=== PATIENT | male | born 1970 | race Caucasian/White ===

== ENCOUNTER 2016-11-17 08:52 | Day surgery (SDC) | payer BC ==
[2016-11-16 11:06] VITALS: BMI 29.1
[~2016-11-17 08:52] MED LIST: LACTATED RINGERS 1,000 ML IV SCH
[2016-11-17 09:09] VITALS: RESP 16; TEMP 98.3
[2016-11-17] MEDS ORDERED: LIDOCAINE 1% 20 ML VIAL (10MG/ML) FOR IV START INTRADERMA ONE (09:20)
[2016-11-17] MEDS ORDERED: fentaNYL (PF) 50 MCG/ML 2 ML AMP ONE (09:24)
[2016-11-17] MEDS ORDERED: TRIAMCINOLONE ACETONIDE 40 MG/ML 1 ML VIAL ONE (09:24)
[2016-11-17] MEDS ORDERED: MIDAZOLAM 2 MG/2 ML VIAL ONE (09:24)
--- NOTE | 2016-11-17 09:48 | P.PCN ---
Date of Procedure: 11/17/16 Anesthesia: MAC Surgeon: Dave Mitchell Pathology: none sent Condition: stable Disposition: PACU Description of Procedure: PREOPERATIVE DIAGNOSIS: Lumbar spondylosis without myelopathy and facet arthropathy POSTOPERATIVE DIAGNOSIS: Lumbar spondylosis without myelopathy and facet arthropathy PROCEDURES: Left Radiofrequency thermocoagulation, L3, L4, and L5 medial branch , with fluoroscopic guidance. ANESTHESIA: 1% lidocaine plain; Conscious sedation with versed/fentanyl EBL: Minimal PROCEDURE INDICATION: The patient with low back pain secondary to lumbar arthropathy who had more than 50% relief of pain with previous diagnostic lumbar medial branch block with bupivacaine. Patient presents for left sided RFA today as right side already completed; no use of blood thinners. PROCEDURE DESCRIPTION / TECHNIQUE: The patient was seen and identified in the preoperative area. Risks, benefits, complications, and alternatives were discussed with the patient (including but not limited to incomplete pain relief , bleeding, infection, nerve damage, and allergies to medications), the patient agreed to proceed with the procedure and signed the consent after all questions were answered. Patient was taken to the OR and time out was completed to verify proper patient , position, laterality of pain, and allergies. Pt was placed in the prone position. IV was started. Vital signs remained stable throughout the procedure. A pillow was placed under the patients chest to decrease lordosis. The lumbosacral area was prepped and draped in the usual sterile fashion. Vital signs were closely monitored during the procedure. Conscious sedation was used during the procedure to decrease patients anxiety. Using AP and then oblique fluoroscopy, the eye of the Fazal dog corresponding to the connection between the superior and transverse articular processes of left L4, L5 and top of the sacrum were identified, marked, and localized with 1% lidocaine. Subsequently, a 18 gauge, 100-mm radiofrequency cannula with a 10-mm active tip was advanced guided by fluoroscopy to each of the eyes of the Fazal dog at left L3, L4, and L5 medial branches. Each site then underwent sensory testing at 50 Hz and 0 to 1 volt and motor testing at 2 Hz and 0 to 3 volt with local stimulation, but no radicular symptoms down the legs. Thereafter the left L3, L4, and L5 medial branch sites underwent radiofrequency thermocoagulation at 80 degrees Celsius for 90 seconds after injecting 0.5 ml of PF lidocaine 1%. After thermocoagulation, 1 ml of the block solution containing Kenalog 40 mg and 2 mL of preservative-free normal saline was injected at the left L3, L4, and L5 medial branch levels after negative aspiration of CSF and blood and with no paresthesias. Cannulas were retracted while injecting lidocaine 1% until the needles were removed. At the end of the procedure, the skin was cleansed and bandages were applied. COMPLICATIONS: No acute complications. DISPOSITION / PLANS: The patient was placed in a supine position and transferred to the recovery area in a stable condition for observation and was discharged from the recovery room after meeting discharge criteria. Home discharge instructions given to the patient by the staff. The patient was reexamined prior to discharge. The patient will schedule a follow up in the clinic in 2-4 weeks.
[2016-11-17 10:17] VITALS: BP 122/80; PULSE 63
[2016-11-17] MEDS ORDERED: IV FLUID CONTINUATION 1,000 ML IV ONE (10:24)
--- NOTE | 2016-11-17 11:10 | FL ---
EXAMINATION TYPE: FL guided pain mgmt statistic DATE OF EXAM: 11/17/2016 9:47 AM HISTORY: Flouroscopy time 7 seconds of fluoroscopy provided. IMPRESSION: 1. Fluoroscopy time.
== END 2016-11-17 10:58 | disposition home or self-care (01) ==
LOC: ORPAIN 08:52
PROVIDERS: ATTEND Anesthesiology
DX: M46.86 Other specified inflammatory spondylopathies, lumbar region (principal); M47.816 Spondylosis without myelopathy or radiculopathy, lumbar region; I10 Essential (primary) hypertension; Z79.899 Other long term (current) drug therapy
CPT/HCPCS: 64635; 64636 ×2; J2250; J3301; J3010

== ENCOUNTER 2017-03-09 10:49 | Emergency (ER) | payer BC ==
[2017-03-09 10:55] VITALS: TEMP 97.4
[2017-03-09] MEDS ORDERED: SODIUM CHLORIDE 0.9% 1,000 ML IV STA (11:04)
[2017-03-09] MEDS ORDERED: METOCLOPRAMIDE 5 MG/ML 2 ML VIAL IVP STA (11:05)
[2017-03-09] MEDS ORDERED: MECLIZINE 12.5 MG TAB PO STA (11:05)
--- NOTE | 2017-03-09 11:07 | ED ---
General Adult HPI - General Chief complaint: Dizziness Stated complaint: dizziness Time Seen by Provider: 03/09/17 10:58 Source: patient, family, RN notes reviewed Mode of arrival: ambulatory Limitations: no limitations - History of Present Illness Initial comments: Patient is a pleasant 46-year-old male presenting to the emergency department complaining of dizziness. Onset of symptoms was when he woke yesterday morning. Symptoms have been present since that time. Symptoms are positional. Symptoms worsen with upright position or head movements. Symptoms improved with lying down. Patient has some associated nausea. No syncope. No history of similar symptoms previously. No chest pain or dyspnea. Dizziness is described as a spinning type sensation. - Related Data Home Medications Medication Instructions Recorded Confirmed Lisinopril 40 mg PO DAILY 03/09/17 03/09/17 amLODIPine [Norvasc] 10 mg PO DAILY 03/09/17 03/09/17 Previous Rx's Medication Instructions Recorded Meclizine [Antivert] 25 mg PO TID PRN #12 tab 03/09/17 Allergies Allergy/AdvReac Type Severity Reaction Status Date / Time No Known Allergies Allergy Verified 03/09/17 11:31 Review of Systems ROS Statement: Those systems with pertinent positive or pertinent negative responses have been documented in the HPI. ROS Other: All systems not noted in ROS Statement are negative. Constitutional: Denies: fever Eyes: Denies: eye pain ENT: Denies: ear pain Respiratory: Denies: cough, dyspnea Cardiovascular: Denies: chest pain Endocrine: Denies: fatigue Gastrointestinal: Reports: nausea. Denies: abdominal pain Genitourinary: Denies: dysuria Musculoskeletal: Denies: back pain Skin: Denies: rash Neurological: Reports: vertigo. Denies: headache, weakness, confusion Past Medical History Past Medical History: Hypertension, Musculoskeletal Disorder History of Any Multi-Drug Resistant Organisms: None Reported Past Surgical History: Back Surgery, Orthopedic Surgery Additional Past Surgical History / Comment(s): (ARIADNE) ramila. eye surgery, left wrist pinned, [facility] Past Anesthesia/Blood Transfusion Reactions: No Reported Reaction Past Psychological History: No Psychological Hx Reported Smoking Status: Never smoker Past Alcohol Use History: Daily Past Drug Use History: None Reported - Past Family History Father Family Medical History: CVA/TIA, Hyperlipidemia Mother Family Medical History: No Reported History General Exam Limitations: no limitations General appearance: alert, in no apparent distress Head exam: Present: atraumatic, normocephalic Eye exam: Present: normal appearance, PERRL, EOMI. Absent: nystagmus ENT exam: Present: normal oropharynx Neck exam: Present: normal inspection Respiratory exam: Present: normal lung sounds bilaterally Cardiovascular Exam: Present: regular rate, normal rhythm GI/Abdominal exam: Present: soft. Absent: tenderness Extremities exam: Present: normal inspection. Absent: pedal edema, calf tenderness Neurological exam: Present: alert, CN II-XII intact. Absent: motor sensory deficit Expanded Speech: Present: fluid speech Cranial nerves: EOM's Intact: Normal, Facial Sensation: Normal Sensory exam: Upper Extremity Light Touch: Normal, Lower Extremity Light Touch: Normal Motor strength exam: RUE: 5, LUE: 5, RLE: 5, LLE: 5 Eye Response: (4) open spontaneously Motor Response: (6) obeys commands Verbal Response: (5) oriented Psychiatric exam: Present: normal affect, normal mood Skin exam: Absent: rash Course Vital Signs 03/09/17 03/09/17 10:52 12:54 Temperature 97.4 F L Pulse Rate 88 70 Respiratory 18 16 Rate Blood Pressure 136/68 118/60 O2 Sat by Pulse 97 98 Oximetry EKG Findings - EKG Comments: EKG Findings:: Normal sinus rhythm at 63. NC 158. QRS 88. QT 380. QTC 388. Normal axis. Normal QRS. Normal ST-T. Medical Decision Making - Medical Decision Making Patient reexamined and symptom-free. Patient able to get up and ambulate without any difficulty. Patient and family updated on results - Lab Data Result diagrams: 03/09/17 11:28 03/09/17 11:28 Lab Results 03/09/17 03/09/17 03/09/17 Range/Units 11:28 11:28 11:28 WBC 9.0 (3.8-10.6) k/uL RBC 4.88 (4.30-5.90) m/uL Hgb 14.3 (13.0-17.5) gm/dL Hct 42.8 (39.0-53.0) % MCV 87.6 (80.0-100.0) fL MCH 29.2 (25.0-35.0) pg MCHC 33.3 (31.0-37.0) g/dL RDW 13.3 (11.5-15.5) % Plt Count 268 (150-450) k/uL Neutrophils % 68 % Lymphocytes % 16 % Monocytes % 11 % Eosinophils % 2 % Basophils % 1 % Neutrophils # 6.1 (1.3-7.7) k/uL Lymphocytes # 1.4 (1.0-4.8) k/uL Monocytes # 1.0 (0-1.0) k/uL Eosinophils # 0.2 (0-0.7) k/uL Basophils # 0.1 (0-0.2) k/uL PT 11.2 (9.0-12.0) sec INR 1.1 (<1.1) Sodium 138 (137-145) mmol/L Potassium 5.4 H (3.5-5.1) mmol/L Chloride 105 (98-107) mmol/L Carbon Dioxide 22 (22-30) mmol/L Anion Gap 11 mmol/L BUN 18 (9-20) mg/dL Creatinine 0.75 (0.66-1.25) mg/dL Est GFR (MDRD) Af Amer >60 (>60 ml/min/1.73 sqM) Est GFR (MDRD) Non-Af >60 (>60 ml/min/1.73 sqM) Glucose 108 H (74-99) mg/dL Calcium 9.9 (8.4-10.2) mg/dL Total Bilirubin 1.3 (0.2-1.3) mg/dL AST 36 (17-59) U/L ALT 34 (21-72) U/L Alkaline Phosphatase 72 (38-126) U/L Troponin I (0.000-0.034) ng/mL Total Protein 8.1 (6.3-8.2) g/dL Albumin 4.7 (3.5-5.0) g/dL 03/09/17 Range/Units 11:28 WBC (3.8-10.6) k/uL RBC (4.30-5.90) m/uL Hgb (13.0-17.5) gm/dL Hct (39.0-53.0) % MCV (80.0-100.0) fL MCH (25.0-35.0) pg MCHC (31.0-37.0) g/dL RDW (11.5-15.5) % Plt Count (150-450) k/uL Neutrophils % % Lymphocytes % % Monocytes % % Eosinophils % % Basophils % % Neutrophils # (1.3-7.7) k/uL Lymphocytes # (1.0-4.8) k/uL Monocytes # (0-1.0) k/uL Eosinophils # (0-0.7) k/uL Basophils # (0-0.2) k/uL PT (9.0-12.0) sec INR (<1.1) Sodium (137-145) mmol/L Potassium (3.5-5.1) mmol/L Chloride (98-107) mmol/L Carbon Dioxide (22-30) mmol/L Anion Gap mmol/L BUN (9-20) mg/dL Creatinine (0.66-1.25) mg/dL Est GFR (MDRD) Af Amer (>60 ml/min/1.73 sqM) Est GFR (MDRD) Non-Af (>60 ml/min/1.73 sqM) Glucose (74-99) mg/dL Calcium (8.4-10.2) mg/dL Total Bilirubin (0.2-1.3) mg/dL AST (17-59) U/L ALT (21-72) U/L Alkaline Phosphatase (38-126) U/L Troponin I <0.012 (0.000-0.034) ng/mL Total Protein (6.3-8.2) g/dL Albumin (3.5-5.0) g/dL - Radiology Data Radiology results: report reviewed (Computed tomography scan of the brain shows no acute process) Disposition Clinical Impression: Vertigo Disposition: HOME SELF-CARE Condition: Stable Instructions: Dizziness (ED), Vertigo (ED) Additional Instructions: Please follow-up with primary care physician in the next couple of days for recheck. Return for confusion, weakness, increased dizziness, off balance, worsening symptoms or other concerns. Prescriptions: Meclizine [Antivert] 25 mg PO TID PRN #12 tab PRN Reason: dizziness Referrals: Quentin Moore MD [Primary Care Provider] - 1-2 days
[2017-03-09 11:52] LABS: ALT 34 U/L (21-72); AST 36 U/L (17-59); Alkaline Phosphatase 72 U/L (38-126); Anion Gap 11 mmol/L; Blood Urea Nitrogen 18 mg/dL (9-20); Calcium 9.9 mg/dL (8.4-10.2); Carbon Dioxide 22 mmol/L (22-30); Chloride 105 mmol/L (98-107); Glucose 108 mg/dL (74-99); Non-African American GFR(MDRD) >60 (>60 ml/min/1.73 sqM); Potassium 5.4 mmol/L (3.5-5.1); Sodium 138 mmol/L (137-145); Total Bilirubin 1.3 mg/dL (0.2-1.3); Total Protein 8.1 g/dL (6.3-8.2)
[2017-03-09 11:58] LABS: INR 1.1 (<1.1); Prothrombin Time 11.2 sec (9.0-12.0)
--- NOTE | 2017-03-09 11:58 | CT ---
EXAMINATION TYPE: CT brain wo con DATE OF EXAM: 03/09/2017 11:52 AM COMPARISON: NONE HISTORY: Vertigo, chest pressure CT DLP: [address] of the brain was performed. The ventricles, basal cisterns and sulci overlying the cerebral convexities demonstrate a normal appe arance. There is no evidence for intracranial hemorrhage or sulcal effacement. No mass effects are seen. Osseous calvarium is intact. If symptoms persist consider MRI as clinically warranted. IMPRESSION: 1. No acute intracranial process is seen at this time.
[2017-03-09 12:01] LABS: Basophils # (A) 0.1 k/uL (0-0.2); Basophils % (A) 1 %; CH 29.5; CHCM 33.9; Eosinophils # (A) 0.2 k/uL (0-0.7); Eosinophils % (A) 2 %; HCT 42.8 % (39.0-53.0); HGB 14.3 gm/dL (13.0-17.5); Luc # (Auto) 0.16; Luc % (Auto) 2; Lymphocytes # (A) 1.4 k/uL (1.0-4.8); Lymphocytes % (A) 16 %; MCH 29.2 pg (25.0-35.0); MCHC 33.3 g/dL (31.0-37.0); MCV 87.6 fL (80.0-100.0); Mean Platelet Volume 8.5; Monocytes % (A) 11 %; Neutrophils # (A) 6.1 k/uL (1.3-7.7); Neutrophils % (A) 68 %; RBC 4.88 m/uL (4.30-5.90); RDW 13.3 % (11.5-15.5); WBC (Perox) 9.36
[2017-03-09 12:56] VITALS: BP 118/60; PULSE 70; RESP 16
== END 2017-03-09 13:21 | disposition home or self-care (01) ==
LOC: EC 10:49
DX: R42 Dizziness and giddiness (principal); R11.0 Nausea; I10 Essential (primary) hypertension; Z79.899 Other long term (current) drug therapy
CPT/HCPCS: 36415; 93005; 80053; 84484; 85025; 85610; 70450; 99284; 96374; 96361 ×2; J2765

== ENCOUNTER 2017-07-09 23:11 | Inpatient (IN) | payer BC ==
--- NOTE | 2017-07-09 23:42 | ED ---
General Adult HPI - General Source: patient, EMS, RN notes reviewed, old records reviewed Mode of arrival: EMS <Jaime Phillips - Last Filed: 07/09/17 23:42> <Lavelle Yun - Last Filed: 07/10/17 04:55> - General Chief complaint: Psychiatric Symptoms Stated complaint: ETOH Time Seen by Provider: 07/09/17 23:37 - History of Present Illness Initial comments: This is a 47-year-old male here for evaluation. Patient is a DO NOT RESUSCITATE. Bowel car complaining of suicide. Patient was with the right foot pain after jumping off a jump onto his right foot. Patient to any other pain or injury. Patient states he is suicidal feels like jumping into the water (Jaime Phillips) - Related Data Home Medications Medication Instructions Recorded Confirmed Lisinopril 40 mg PO DAILY 03/09/17 03/09/17 amLODIPine [Norvasc] 10 mg PO DAILY 03/09/17 03/09/17 Previous Rx's Medication Instructions Recorded Meclizine [Antivert] 25 mg PO TID PRN #12 tab 03/09/17 Allergies Allergy/AdvReac Type Severity Reaction Status Date / Time No Known Allergies Allergy Verified 03/09/17 11:31 Review of Systems ROS Other: All systems not noted in ROS Statement are negative. <Jaime Phillips - Last Filed: 07/09/17 23:42> ROS Other: All systems not noted in ROS Statement are negative. <Lavelle Yun - Last Filed: 07/10/17 04:55> ROS Statement: Those systems with pertinent positive or pertinent negative responses have been documented in the HPI. Past Medical History Past Medical History: Hypertension, Musculoskeletal Disorder History of Any Multi-Drug Resistant Organisms: None Reported Past Surgical History: Back Surgery, Orthopedic Surgery Additional Past Surgical History / Comment(s): (ARIADNE) ramila. eye surgery, left wrist pinned, [facility] Past Anesthesia/Blood Transfusion Reactions: No Reported Reaction Past Psychological History: No Psychological Hx Reported Smoking Status: Never smoker Past Alcohol Use History: Daily Past Drug Use History: None Reported - Past Family History Father Family Medical History: CVA/TIA, Hyperlipidemia Mother Family Medical History: No Reported History <Jaime Phillips - Last Filed: 07/09/17 23:42> General Exam General appearance: alert, in no apparent distress Head exam: Present: atraumatic, normocephalic, normal inspection Eye exam: Present: normal appearance, PERRL, EOMI. Absent: scleral icterus, conjunctival injection, periorbital swelling ENT exam: Present: normal exam, mucous membranes moist Neck exam: Present: normal inspection. Absent: tenderness, meningismus, lymphadenopathy Respiratory exam: Present: normal lung sounds bilaterally. Absent: respiratory distress, wheezes, rales, rhonchi, stridor Cardiovascular Exam: Present: regular rate, normal rhythm, normal heart sounds. Absent: systolic murmur, diastolic murmur, rubs, gallop, clicks GI/Abdominal exam: Present: soft, normal bowel sounds. Absent: distended, tenderness, guarding, rebound, rigid Extremities exam: Present: normal inspection, full ROM, normal capillary refill. Absent: tenderness, pedal edema, joint swelling, calf tenderness Back exam: Present: normal inspection Neurological exam: Present: alert, oriented X3, CN II-XII intact Psychiatric exam: Present: normal affect, normal mood Skin exam: Present: warm, dry, intact, normal color. Absent: rash <Jaime Phillips - Last Filed: 07/09/17 23:42> Course <Jaime Phillips - Last Filed: 07/09/17 23:42> <Lavelle Yun - Last Filed: 07/10/17 04:55> Vital Signs 07/09/17 23:21 Temperature 98.2 F Pulse Rate 86 Respiratory 18 Rate Blood Pressure 164/87 O2 Sat by Pulse 95 Oximetry - Reevaluation(s) Reevaluation #1: 07/10/17 04:05 Patient was reevaluated. He is clinically sober. He is still complaining of suicidal ideation. He will be evaluated by EPS. (Lavelle Yun) Medical Decision Making <Jaime Phillips - Last Filed: 07/09/17 23:42> <Lavelle Yun - Last Filed: 07/10/17 04:55> - Medical Decision Making 47-year-old male presenting with alcohol intoxication and suicidal ideation. After the patient is medically cleared, and clinically sober, he is evaluated by EPS. The patient does meet for inpatient psychiatric evaluation and treatment. He will be admitted for further care. Patient is agreeable with this plan. (Lavelle Yun) - Lab Data Lab Results 07/10/17 Range/Units 00:30 Urine Opiates Screen Not Detected (NotDetected) Ur Oxycodone Screen Not Detected (NotDetected) Urine Methadone Screen Not Detected (NotDetected) Ur Propoxyphene Screen Not Detected (NotDetected) Ur Barbiturates Screen Not Detected (NotDetected) U Tricyclic Antidepress Not Detected (NotDetected) Ur Phencyclidine Scrn Not Detected (NotDetected) Ur Amphetamines Screen Not Detected (NotDetected) U Methamphetamines Scrn Not Detected (NotDetected) U Benzodiazepines Scrn Not Detected (NotDetected) Urine Cocaine Screen Not Detected (NotDetected) U Marijuana (THC) Screen Not Detected (NotDetected) Disposition <Jaime Phillips - Last Filed: 07/09/17 23:42> Decision to Admit Reason: Admit from EC Decision Date: 07/10/17 Decision Time: 04:55 <Lavelle Yun - Last Filed: 07/10/17 04:55> Clinical Impression: Depression, Suicidal ideation Disposition: ADMITTED IP TO THIS [facility] Condition: Stable Referrals: Quentin Moore MD [Primary Care Provider] - 1-2 days
--- NOTE | 2017-07-10 00:24 | XR ---
EXAM: XR Right Foot Complete, 3 or More Views. CLINICAL HISTORY: Reason: Pain TECHNIQUE: Frontal, lateral and oblique views of the right foot. COMPARISON: No relevant prior studies available. FINDINGS: Bones: Chronic, healed fracture of the second metatarsal, without significant residual deformity. Joints: Unremarkable. No dislocation. Soft tissues: Unremarkable. No radiopaque foreign body. IMPRESSION: No acute findings in the right foot. Chronic, healed fracture of the second metatarsal.
--- NOTE | 2017-07-10 00:25 | XR ---
EXAM: XR Right Ankle Complete, 3 or More Views. CLINICAL HISTORY: Reason: Pain TECHNIQUE: Frontal, lateral and oblique views of the right ankle. COMPARISON: No relevant prior studies available. FINDINGS: Bones: Unremarkable. No acute fracture. Joints: Unremarkable. No dislocation. Soft tissues: Unremarkable. IMPRESSION: Normal right ankle.
[2017-07-10 05:23] VITALS: RESP 16
[2017-07-10] MEDS ORDERED: MAGNESIUM HYDROXIDE 2,400 MG/10 ML CUP PO PRN (05:36)
[2017-07-10] MEDS ORDERED: ACETAMINOPHEN TAB 325 MG TAB PO PRN (05:36)
[2017-07-10] MEDS ORDERED: MAG HYDROX/AL HYDROX/SIMETH 30 ML CUP PO PRN (05:36)
[2017-07-10] MEDS ORDERED: LORazepam 1 MG TAB PO PRN (05:36)
[2017-07-10 06:19] VITALS: TEMP 100.4
[2017-07-10] MEDS ORDERED: NICOTINE 14MG/24HR PATCH TRANSDERM SCH (09:00)
[2017-07-10 09:16] LABS: Basophils % (A) 0 %; CH 28.6; CHCM 33.1; Eosinophils # (A) 0.2 k/uL (0-0.7); Eosinophils % (A) 2 %; HCT 43.8 % (39.0-53.0); HDW 2.27; HGB 14.9 gm/dL (13.0-17.5); Luc # (Auto) 0.22; Luc % (Auto) 2; Lymphocytes # (A) 2.1 k/uL (1.0-4.8); Lymphocytes % (A) 19 %; MCH 29.4 pg (25.0-35.0); MCV 86.7 fL (80.0-100.0); Mean Platelet Volume 7.1; Monocytes # (A) 0.8 k/uL (0-1.0); Monocytes % (A) 7 %; Neutrophils # (A) 8.1 k/uL (1.3-7.7); Neutrophils % (A) 71 %; RBC 5.05 m/uL (4.30-5.90); RDW 14.4 % (11.5-15.5); WBC 11.4 k/uL (3.8-10.6); WBC (Perox) 11.54
[2017-07-10 09:41] LABS: ALT 25 U/L (21-72); AST 23 U/L (17-59); Alkaline Phosphatase 128 U/L (38-126); Anion Gap 10 mmol/L; Blood Urea Nitrogen 8 mg/dL (9-20); Calcium 9.4 mg/dL (8.4-10.2); Carbon Dioxide 24 mmol/L (22-30); Chloride 108 mmol/L (98-107); Glucose 86 mg/dL (74-99); Non-African American GFR(MDRD) >60 (>60 ml/min/1.73 sqM); Potassium 4.4 mmol/L (3.5-5.1); Sodium 142 mmol/L (137-145); Total Bilirubin 0.4 mg/dL (0.2-1.3)
[2017-07-10 12:23] VITALS: BP 130/88; PULSE 92
--- NOTE | 2017-07-10 16:48 | P.CONS ---
History of Present Illness - Reason for Consult Consult date: 07/10/17 medical history and physical - Chief Complaint Suicidal ideation - History of Present Illness His a 47-year-old gentleman with multiple episodes of admission to the psych unit due to suicidal ideation comes in to the hospital after attending a suicide by jumping and there are patient states that he was drinking alcohol just felt hopeless about his life and hence attempted suicide. What is interesting is the patient has had the multiple admissions the hospital however try to use his brother's name to be admitted to the hospital for insurance purposes Today patient states that he continues to be hopeless no active plans for any suicidal ideation. Patient denies any recent IV drug use. Denies using any other illicit substances except for alcohol continues to smoke tobacco Denies having any headaches changes in vision nausea vomiting chest pain abdominal pain urinary urgency or frequency patient's only complaint is that he has some soreness of the bottom of the heel however is able to bear weight Review of systems 14 point review of systems was done nonpertinent was mentionable Gen. appearance alert oriented 3 does not appear to be in distress neck is supple no JVD Pupils are equal round reactive light and cognition Lungs diminished breath sounds however air movement is appreciated no rhonchi wheezing or crackles Heart regular rate and rhythm no murmurs appreciable Abdomen is soft nontender no organomegaly Lower no edema is noted Neuro no focal motor or sensory deficits noted Patient is able to bear weight on his ankles no significant edema on palpation of his right or left ankle Assessment and plan #1 major depression with suicidal ideation #2 polysubstance overuse #3 essential hypertension #4 ongoing tobacco dependence Plan Patient does not need any further workup for his ankles soft voiding to [place] ankle rules patient is able to bear weight, the pretest probability of obtaining a ankle x-rays very low We'll encourage the patient to slowly increase activity Follow-up thank you for the consultation we'll further workup is needed we'll sign off on the case at this time. Past Medical History Past Medical History: Hypertension, Musculoskeletal Disorder History of Any Multi-Drug Resistant Organisms: None Reported Past Surgical History: Back Surgery, Orthopedic Surgery Additional Past Surgical History / Comment(s): (ARIADNE) bilat. eye surgery, left wrist pinned, [facility] Past Anesthesia/Blood Transfusion Reactions: No Reported Reaction Smoking Status: Never smoker - Past Family History Father Family Medical History: CVA/TIA, Hyperlipidemia Mother Family Medical History: No Reported History Medications and Allergies Home Medications Medication Instructions Recorded Confirmed Type Lisinopril 40 mg PO DAILY 03/09/17 07/10/17 History Meclizine [Antivert] 25 mg PO TID PRN #12 tab 03/09/17 07/10/17 Rx amLODIPine [Norvasc] 10 mg PO DAILY 03/09/17 07/10/17 History Allergies Allergy/AdvReac Type Severity Reaction Status Date / Time No Known Allergies Allergy Verified 07/10/17 05:44 Physical Exam Vitals: Vital Signs Temp Pulse Pulse Resp BP BP Pulse Ox 07/10/17 12:22 92 16 130/88 07/10/17 06:17 100.4 F H 123 H 16 126/69 07/10/17 05:48 97 07/10/17 05:19 98.0 F 110 H 16 130/75 79 L 07/09/17 23:21 98.2 F 86 18 164/87 95 Intake and Output 07/10/17 07/10/17 07/10/17 06:59 14:59 22:59 Other: Weight 72.575 kg Results CBC & Chem 7: 07/10/17 08:51 07/10/17 08:51 Labs: Abnormal Lab Results - Last 24 Hours (Table) 07/10/17 07/10/17 Range/Units 08:51 08:51 WBC 11.4 H (3.8-10.6) k/uL Neutrophils # 8.1 H (1.3-7.7) k/uL Chloride 108 H (98-107) mmol/L BUN 8 L (9-20) mg/dL Alkaline Phosphatase 128 H (38-126) U/L
== END 2017-07-10 17:22 | disposition home or self-care (01) | DRG 881 ==
LOC: EC 23:11 → 3MHU 07-10 05:33
PROVIDERS: ADMIT Psychiatry & Neurology Psychiatry; ATTEND Psychiatry & Neurology Psychiatry
DX: F32.9 Major depressive disorder, single episode, unspecified (principal); R45.851 Suicidal ideations; I10 Essential (primary) hypertension; Z66 Do not resuscitate; Z79.899 Other long term (current) drug therapy; F10.129 Alcohol abuse with intoxication, unspecified; F17.200 Nicotine dependence, unspecified, uncomplicated
CPT/HCPCS: 80053; 80306; 82075; 84443; 85025; 99285

== ENCOUNTER → 2018-06-08 | Outpatient (CLI) | payer BC, OTHER ==
[2018-06-08 17:04] LABS: Immunoglobulin E <1.00 IU/mL (0.00-114.00)
[2018-06-08 18:11] LABS: Alternaria alternata IgE <0.10 kU/L; Birch IgE <0.10 kU/L; Cat Epith & Dander IgE <0.10 kU/L; Clam IgE <0.10 kU/L; Cockroach IgE <0.10 kU/L; Codfish IgE <0.10 kU/L; Dermato. farinae IgE 0.21 kU/L; Dog Dander IgE <0.10 kU/L; Egg White IgE <0.10 kU/L; Elm IgE <0.10 kU/L; Immunoglobulin E <1.00 IU/mL (0.00-114.00); Maple (Box Elder) IgE <0.10 kU/L; Oak IgE <0.10 kU/L; Peanut IgE <0.10 kU/L; Ragweed,Common IgE <0.10 kU/L; Red Top (Bentgrass) IgE <0.10 kU/L; Scallop IgE <0.10 kU/L; Shrimp IgE <0.10 kU/L; Soybean IgE <0.10 kU/L; Walnut IgE (Food) <0.10 kU/L
[2018-06-09 12:26] LABS: IgG Subclass 3 15.1 mg/dL (11.0-85.0); IgG Subclass 4 <5.2 mg/dL (3.0-175.0)
== END | disposition home or self-care (01) ==
LOC: LABWHC1 10:06
PROVIDERS: ATTEND Internal Medicine Critical Care Medicine
DX: J20.9 Acute bronchitis, unspecified (principal); J30.2 Other seasonal allergic rhinitis
CPT/HCPCS: 36415; 82784; 82785; 82787; 86003

== ENCOUNTER → 2018-12-08 | Outpatient (CLI) | payer BC ==
--- NOTE | 2018-12-09 09:23 | CT ---
EXAMINATION TYPE: CT chest wo con DATE OF EXAM: 12/08/2018 COMPARISON: Chest x-ray December 04, 2018 HISTORY: Acute bronchitis per order. CT DLP: 439.2 mGycm. Automated Exposure Control for Dose Reduction was Utilized. TECHNIQUE: CT scan of the thorax is performed without IV contrast. FINDINGS: LUNGS: There is minimal patchy bibasilar linear scarring and/or atelectasis. There is no suspicious f ocal consolidation or groundglass opacity seen. There is no pleural effusion or pneumothorax seen christine aterally. No concerning parenchymal nodules or masses are present. The tracheobronchial tree is paten t. MEDIASTINUM: Lack of IV contrast is noted to limit evaluation for mediastinal and especially hilar ad enopathy. There are no definitive greater than 1 cm hilar or mediastinal lymph nodes. No cardiomega ly or pericardial effusion is seen. Mild coronary artery calcification is seen which is noted marker for coronary artery disease. OTHER: Mild to moderate multilevel anterior and lateral spurring in the mid to lower thoracic spine i s present. IMPRESSION: No suspicious acute pulmonary process.
== END | disposition home or self-care (01) ==
LOC: RADCTMAIN 17:21
PROVIDERS: ATTEND Internal Medicine Critical Care Medicine
DX: J20.9 Acute bronchitis, unspecified (principal)
CPT/HCPCS: 71250

== ENCOUNTER → 2019-04-24 | Outpatient (CLI) | payer BC ==
[2019-04-24 07:45] LABS: Basophils % (A) 0 %; Eosinophils % (A) 0 %; HCT 42.1 % (39.0-53.0); HGB 13.8 gm/dL (13.0-17.5); Lymphocytes # (A) 1.7 k/uL (1.0-4.8); Lymphocytes % (A) 10 %; MCHC 32.8 g/dL (31.0-37.0); MCV 85.3 fL (80.0-100.0); Mean Platelet Volume 7.3; Monocytes # (A) 0.8 k/uL (0-1.0); Monocytes % (A) 4 %; Neutrophils # (A) 15.1 k/uL (1.3-7.7); Neutrophils % (A) 85 %; Platelet Count 531 k/uL (150-450); RBC 4.94 m/uL (4.30-5.90); RDW 13.3 % (11.5-15.5); WBC 17.8 k/uL (3.8-10.6)
[2019-04-24 10:53] LABS: Erythrocyte Sedimentation Rate 20 mm/hr (0-15)
[2019-04-24 10:57] LABS: Vitamin D 25 Hydroxy 17.1 ng/mL (30.0-100.0)
[2019-04-24 11:52] LABS: C Reactive Protein <0.4 mg/dL (0.0-0.8); Cholesterol 220 mg/dL (0-200); Creatine Kinase 104 U/L (35-257); LDL Cholesterol,Calculated 145.6 mg/dL (0.0-131.0)
[2019-04-24 11:53] LABS: ALT 16 U/L (10-49); AST 17 U/L (14-35); African American GFR (CKD) 120.7 (60.0-200.0); Albumin/Globulin Ratio 1.91 (1.60-3.17); Alkaline Phosphatase 74 U/L (41-126); Anti-DNA, DS unit <1.0 IU/mL; BUN/Creat Ratio 23.75 Ratio (12.00-20.00); Calcium 9.5 mg/dL (8.7-10.3); Carbon Dioxide 24.5 mmol/L (21.6-31.8); Chloride 105 mmol/L (96-109); DNA Double-Stranded NEGATIVE (NEGATIVE); Globulin 2.3 g/dL (1.6-3.3); Glucose 111 mg/dL (70-110); Potassium 4.9 mmol/L (3.5-5.5); Sodium 139 mmol/L (135-145); Total Bilirubin 0.3 mg/dL (0.3-1.2); Total Protein 6.7 g/dL (6.2-8.2)
[2019-04-24 12:54] LABS: Hepatitis C IgG Antibody Non-Reactive (Non-Reactive)
== END | disposition home or self-care (01) ==
LOC: LABWHC1 06:47
PROVIDERS: ATTEND Internal Medicine
DX: N40.0 Benign prostatic hyperplasia without lower urinary tract symptoms (principal); J44.9 Chronic obstructive pulmonary disease, unspecified; E87.8 Other disorders of electrolyte and fluid balance, not elsewhere classified; E78.5 Hyperlipidemia, unspecified; E55.9 Vitamin D deficiency, unspecified; M35.9 Systemic involvement of connective tissue, unspecified; R05 Cough
CPT/HCPCS: 36415; 80053; 80061; 82306; 82550; 84153; 84443; 85025; 85652; 86038; 86140; 86225; 86803

== ENCOUNTER → 2019-12-28 | Outpatient (CLI) | payer BC ==
[2019-12-28 10:07] LABS: Basophils # (A) 0.1 k/uL (0-0.2); Basophils % (A) 1 %; Eosinophils # (A) 0.2 k/uL (0-0.7); Eosinophils % (A) 2 %; HCT 42.3 % (39.0-53.0); Lymphocytes # (A) 2.3 k/uL (1.0-4.8); Lymphocytes % (A) 27 %; MCH 28.5 pg (25.0-35.0); MCHC 33.1 g/dL (31.0-37.0); Mean Platelet Volume 7.5; Monocytes # (A) 0.5 k/uL (0-1.0); Monocytes % (A) 6 %; Neutrophils # (A) 5.3 k/uL (1.3-7.7); Neutrophils % (A) 62 %; Platelet Count 334 k/uL (150-450); RBC 4.93 m/uL (4.30-5.90); RDW 13.3 % (11.5-15.5); WBC 8.5 k/uL (3.8-10.6)
[2019-12-28 16:40] LABS: African American GFR (CKD) 114.2 (60.0-200.0); Anion Gap 6.5 mmol/L (4.00-12.00); BUN/Creat Ratio 14.44 Ratio (12.00-20.00); Calcium 9.6 mg/dL (8.7-10.3); Carbon Dioxide 26.5 mmol/L (21.6-31.8); Chol/HDL Ratio 3.58; LDL Cholesterol,Calculated 93.2 mg/dL (0.0-131.0); Non-African American GFR(CKD) 98.5 (60.0-200.0); Potassium 4.6 mmol/L (3.5-5.5); VLDL Calculation 17.8 mg/dL (5.00-40.00)
== END | disposition home or self-care (01) ==
LOC: LABWHC1 09:29
PROVIDERS: ATTEND Internal Medicine
DX: I10 Essential (primary) hypertension (principal); E87.8 Other disorders of electrolyte and fluid balance, not elsewhere classified; E78.5 Hyperlipidemia, unspecified; E55.9 Vitamin D deficiency, unspecified; D72.829 Elevated white blood cell count, unspecified
CPT/HCPCS: 36415; 80048; 80061; 82306; 84450; 84460; 85025

== ENCOUNTER → 2020-09-01 | Outpatient (CLI) | payer BC ==
[2020-09-01 09:35] LABS: Basophils % (A) 1 %; Eosinophils # (A) 0.2 k/uL (0-0.7); Eosinophils % (A) 3 %; HCT 46.7 % (39.0-53.0); Lymphocytes # (A) 2.1 k/uL (1.0-4.8); Lymphocytes % (A) 25 %; MCH 28.8 pg (25.0-35.0); MCV 89.9 fL (80.0-100.0); Mean Platelet Volume 7.4; Monocytes # (A) 0.6 k/uL (0-1.0); Monocytes % (A) 7 %; Neutrophils # (A) 5.4 k/uL (1.3-7.7); Neutrophils % (A) 63 %; Platelet Count 334 k/uL (150-450); RBC 5.19 m/uL (4.30-5.90); WBC 8.5 k/uL (3.8-10.6)
[2020-09-01 17:53] LABS: ALT 18 U/L (10-49); AST 18 U/L (14-35); African American GFR (CKD) 113.4 (60.0-200.0); Albumin/Globulin Ratio 2.29 (1.60-3.17); Alkaline Phosphatase 104 U/L (41-126); BUN/Creat Ratio 16.67 Ratio (12.00-20.00); C Reactive Protein <0.4 mg/dL (0.0-0.8); Calcium 9.4 mg/dL (8.7-10.3); Carbon Dioxide 25.6 mmol/L (21.6-31.8); Chloride 107 mmol/L (96-109); Chol/HDL Ratio 3.51; Cholesterol 158 mg/dL (0-200); Creatine Kinase 167 U/L (35-257); Globulin 2.1 g/dL (1.6-3.3); Glucose 100 mg/dL (70-110); LDL Cholesterol,Calculated 81.8 mg/dL (0.0-131.0); Non-African American GFR(CKD) 97.9 (60.0-200.0); Potassium 4.7 mmol/L (3.5-5.5); Sodium 142 mmol/L (135-145); Total Bilirubin 0.7 mg/dL (0.3-1.2); Total Protein 6.9 g/dL (6.2-8.2)
[2020-09-01 17:59] LABS: Prostate Specific Antigen 2.2 ng/mL (0.0-3.5)
[2020-09-01 18:54] LABS: Erythrocyte Sedimentation Rate 7 mm/Hr (0-20)
== END | disposition home or self-care (01) ==
LOC: LABWHC1 07:27
PROVIDERS: ATTEND Internal Medicine
DX: I10 Essential (primary) hypertension (principal); N40.0 Benign prostatic hyperplasia without lower urinary tract symptoms; D64.9 Anemia, unspecified; E78.5 Hyperlipidemia, unspecified
CPT/HCPCS: 36415; 80053; 80061; 82550; 84153; 85025; 85652; 86140

== ENCOUNTER → 2022-02-06 | Outpatient (CLI) | payer BC ==
[2022-02-06 11:54] LABS: Basophils # (A) 0.06 X 10*3/uL (0.00-0.10); Basophils % (A) 0.7 %; Eosinophils # (A) 0.19 X 10*3/uL (0.04-0.35); Eosinophils % (A) 2.1 %; HGB 13.9 g/dL (13.0-17.0); Immature Grans, Automated 0.2 %; Lymphocytes # (A) 1.69 X 10*3/uL (0.90-5.00); Lymphocytes % (A) 18.9 %; MCH 29.8 pg (27.0-32.0); MCHC 33.1 g/dL (32.0-37.0); MCV 90.1 fL (80.0-97.0); Mean Platelet Volume 10.5 fL (9.5-12.2); Monocytes # (A) 1.11 X 10*3/uL (0.20-1.00); Monocytes % (A) 12.4 %; NRBC Per 100 WBC 0 /100 WBCS (0.0-0.0); Neutrophils # (A) 5.86 X 10*3/uL (1.80-7.70); Neutrophils % (A) 65.7 %; Platelet Count 317 X 10*3/uL (140-440); RBC 4.66 X 10*6/uL (4.40-5.60); RDW 12.9 % (11.5-14.5); WBC 8.93 X 10*3/uL (4.50-10.00)
[2022-02-06 12:21] LABS: ALT 22 U/L (10-49); AST 18 U/L (14-35); African American GFR (CKD) 112.6 (60.0-200.0); Albumin 4.6 g/dL (3.8-4.9); Albumin/Globulin Ratio 2.09 (1.60-3.17); Alkaline Phosphatase 88 U/L (41-126); BUN/Creat Ratio 19.22 Ratio (12.00-20.00); Blood Urea Nitrogen 17.3 mg/dL (9.0-27.0); Calcium 9.2 mg/dL (8.7-10.3); Carbon Dioxide 19.9 mmol/L (20.0-27.5); Chloride 106 mmol/L (96-109); Globulin 2.2 g/dL (1.6-3.3); Glucose 96 mg/dL (70-110); Magnesium 2.1 mg/dL (1.5-2.4); Non-African American GFR(CKD) 97.2 (60.0-200.0); Phosphorus 3.5 mg/dL (2.4-5.1); Potassium 4.5 mmol/L (3.5-5.5); Sodium 140 mmol/L (135-145); Total Protein 6.8 g/dL (6.2-8.2)
[2022-02-06 12:22] LABS: Chol/HDL Ratio 4.02 Ratio; LDL Cholesterol,Calculated 91.8 mg/dL (0.0-131.0)
[2022-02-06 12:50] LABS: Erythrocyte Sedimentation Rate 19 mm/Hr (0-20)
[2022-02-07 18:46] LABS: Creatine Kinase 160 U/L (35-257)
== END | disposition home or self-care (01) ==
LOC: LABWHC1 08:57
PROVIDERS: ATTEND Internal Medicine
DX: Z00.00 Encounter for general adult medical examination without abnormal findings (principal); N40.0 Benign prostatic hyperplasia without lower urinary tract symptoms; I10 Essential (primary) hypertension; E78.5 Hyperlipidemia, unspecified; E55.9 Vitamin D deficiency, unspecified; M81.0 Age-related osteoporosis without current pathological fracture
CPT/HCPCS: 36415; 80053; 80061; 82550; 83735; 84100; 84153; 85025; 85652; 86140

== ENCOUNTER → 2023-04-22 | Outpatient (CLI) | payer BC ==
[2023-04-22 20:13] LABS: ALT 17 U/L (10-49); AST 17 U/L (14-35); Albumin 4.6 d/dL (3.8-4.9); Albumin/Globulin Ratio 1.92 Ratio (1.60-3.17); Alkaline Phosphatase 89 U/L (41-126); BUN/Creat Ratio 19.44 Ratio (12.00-20.00); Blood Urea Nitrogen 17.5 mg/dL (9.0-27.0); C Reactive Protein <0.30 mg/dL (0.00-0.80); Carbon Dioxide 24.8 mmol/L (21.6-31.8); Chloride 106 mmol/L (96-109); Chol/HDL Ratio 3.93 Ratio; Creatine Kinase 134 U/L (35-257); Globulin 2.4 d/dL (1.6-3.3); Glucose 102 mg/dL (70-110); LDL Cholesterol,Calculated 106.5 mg/dL (0.0-131.0); Potassium 4.4 mmol/L (3.5-5.5); Sodium 143 mmol/L (135-145); Total Bilirubin 0.4 mg/dL (0.3-1.2)
[2023-04-22 21:37] LABS: Basophils # (A) 0.07 X 10*3/uL (0.00-0.10); Basophils % (A) 0.9 %; Eosinophils # (A) 0.09 X 10*3/uL (0.04-0.35); Eosinophils % (A) 1.2 %; HCT 45.3 % (39.6-50.0); HGB 14.4 d/dL (12.0-15.0); Lymphocytes # (A) 2.02 X 10*3/uL (0.90-5.00); Lymphocytes % (A) 25.8 %; MCH 28.9 pg (27.0-32.0); MCHC 31.8 d/dL (32.0-37.0); Mean Platelet Volume 10.5 FL (9.5-12.2); Monocytes # (A) 0.71 X 10*3/uL (0.20-1.00); Monocytes % (A) 9.1 %; NRBC Per 100 WBC 0 X 10*3/uL (0.00-0.01); Neutrophils % (A) 62.6 %; Platelet Count 350 X 10*3/uL (140-440); RBC 4.98 X 10*6/uL (4.40-5.60); RDW 13.2 % (11.5-14.5); WBC 7.82 X 10*3/uL (4.50-10.00)
[2023-04-22 22:39] LABS: Erythrocyte Sedimentation Rate 14 mm/Hr (0-20)
== END | disposition home or self-care (01) ==
LOC: LABWHC1 11:49
PROVIDERS: ATTEND Internal Medicine
DX: Z00.00 Encounter for general adult medical examination without abnormal findings (principal); N40.0 Benign prostatic hyperplasia without lower urinary tract symptoms; I10 Essential (primary) hypertension; E87.8 Other disorders of electrolyte and fluid balance, not elsewhere classified; E78.5 Hyperlipidemia, unspecified; E55.9 Vitamin D deficiency, unspecified
CPT/HCPCS: 36415; 80053; 80061; 82306; 82550; 84153; 85025; 85652; 86140

== ENCOUNTER → 2023-12-27 | Outpatient (CLI) | payer BC ==
[2023-12-27 18:16] LABS: HCT 39.4 % (39.6-50.0); HGB 13.4 g/dL (13.0-17.0); MCH 30.3 pg (27.0-32.0); MCV 89.1 FL (80.0-97.0); NRBC Per 100 WBC 0 X 10*3/uL (0.00-0.01); Platelet Count 302 X 10*3/uL (140-440); RBC 4.42 X 10*6/uL (4.40-5.60); RDW 12.4 % (11.5-14.5); WBC 9.26 X 10*3/uL (4.50-10.00)
[2023-12-27 18:20] LABS: Blood Urea Nitrogen 20.5 mg/dL (9.0-27.0); Carbon Dioxide 25.6 mmol/L (21.6-31.8); Chloride 106 mmol/L (96-109); Glucose 95 mg/dL (70-110); Potassium 4.5 mmol/L (3.5-5.5); Sodium 142 mmol/L (135-145)
[2023-12-27 18:21] LABS: Calcium 9.6 mg/dL (8.7-10.3)
[2023-12-27 18:45] LABS: Basophils # (M) 0.09 X 10*3/uL (0.00-0.10); Eosinophils # (M) 0.37 X 10*3/uL (0.04-0.35); Lymphocytes # (M) 1.11 X 10*3/uL (0.90-5.00); Monocytes # (M) 0.37 X 10*3/uL (0.20-1.00); Neutrophils # (M) 7.32 X 10*3/uL (1.80-7.70); Neutrophils % (M) 79 %; RBC Morphology Normal (Normal)
--- NOTE | 2023-12-28 08:10 | XR ---
EXAMINATION TYPE: XR chest 2V DATE OF EXAM: 12/27/2023 COMPARISON: 12/04/2018 TECHNIQUE: PA and lateral views submitted. HISTORY: Cough FINDINGS: The lungs are clear and there is no pneumothorax, pleural effusion, or focal pneumonia. Heart size normal and no overt failure. Osseous structures demonstrate hypertrophic and degenerative changes of the spine. IMPRESSION: 1. No acute process.
== END | disposition home or self-care (01) ==
LOC: LABWHC1 15:32
PROVIDERS: ATTEND Internal Medicine
DX: R05.9 Cough, unspecified (principal); R50.9 Fever, unspecified
CPT/HCPCS: 36415; 71046; 80048; 85025; 87502; 87634